=== PATIENT | male | born 1975 | race Caucasian/White ===

== ENCOUNTER 2018-05-23 11:25 | Emergency (ER) | payer SELFPAY ==
[2018-05-23 11:33] VITALS: BP 128/89
--- NOTE | 2018-05-23 12:44 | ER Document Report ---
HPI - HPI Patient complains to provider of: back pain Onset: This morning - 09 05 2 days ago Pain Level: 5 Context: 42-year-old male fell backwards into a back bend hitting his lower thoracic spine and right side middle back on the truck bed. No abdominal pain or chest pain. No shortness of breath. He has to stand due to the pain. There is no radiculopathy. Associated Symptoms: None Exacerbated by: Sitting Relieved by: Denies Similar symptoms previously: No Recently seen / treated by doctor: No Past Medical History - General Information source: Patient - Social History Smoking Status: Never Smoker Frequency of alcohol use: None Drug Abuse: None Lives with: Family Family History: Reviewed & Not Pertinent Patient has suicidal ideation: No Patient has homicidal ideation: No - Medical History Medical History: Negative Renal/ Medical History: Denies: Hx Peritoneal Dialysis Surgical Hx: Negative Vertical Provider Document - CONSTITUTIONAL Agree With Documented VS: Yes Exam Limitations: No Limitations - HEENT HEENT: Normocephalic - NECK Neck: Supple - RESPIRATORY Respiratory: Breath Sounds Normal, No Respiratory Distress - CARDIOVASCULAR Cardiovascular: Regular Rate, Regular Rhythm - BACK Back: Normal Inspection Notes: tender lower t spine and lateral right mid back, no abrasions or bruising - MUSCULOSKELETAL/EXTREMETIES Musculoskeletal/Extremeties: Tender - see above - NEURO Level of Consciousness: Alert Course - Re-evaluation Re-evalutation: 05/23/18 12:47 Patient does not want anything for pain at this time. He is really uncomfortable and cannot sit due to the pain. He wants to have pain pill prescription that he could go back to the hotel and take because he drove himself here. 05/23/18 13:30 compression tx seen on xray, CT ordered, the ribs and chest are negative per rad. 05/23/18 14:53 CT shows endplate compression fracture T10 and T11, no sharp edges. vacuum disc changes T9-10 and T10-11,. Calling Dr. Alexy Resendez to see if Kyphoplasty is option. 05/23/18 15:00 - Vital Signs Vital signs: Temp Pulse Resp BP Pulse Ox 97.7 F 66 16 128/89 H 98 05/23/18 11:31 05/23/18 11:31 05/23/18 11:31 05/23/18 11:31 05/23/18 11:31 Discharge - Discharge Clinical Impression: endplate compression fx T10 and T11 Condition: Good Disposition: HOME, SELF-CARE Instructions: Compression Fracture of the Spine ([facility]), Contusion ([facility]), Ice Packs ([facility]), Warm Packs ([facility]) Additional Instructions: warm compress pain medication 1 every 4 hours as needed Pain medication may constipate used to make sure you take a stool softener motrin 800mg three times per day for inflammation Referral to [facility] who may be able to do a procedure to decrease the pain you have in your compression fracture Prescriptions: Hydrocodone Bit/Acetaminophen [Hydrocodon-Acetaminophen 5-325] 1 - 2 each PO Q4HP PRN #15 tablet PRN Reason: Ibuprofen [Motrin 800 mg Tablet] 800 mg PO Q8HP PRN #30 tablet PRN Reason: Cyclobenzaprine HCl [Flexeril 10 Mg Tablet] 10 mg PO TIDP PRN #20 tablet PRN Reason: Forms: Return to Work Referrals: ALXEY RESENDEZ MD [ACTIVE STAFF] - Follow up tomorrow (call for appointment)
--- NOTE | 2018-05-23 13:32 | RADIOLOGY REPORT (SQ) ---
EXAM DESCRIPTION: T SPINE AP/LAT COMPLETED DATE/TIME: 05/23/2018 1:10 pm REASON FOR STUDY: fell on truck be, lower t spine COMPARISON: None. NUMBER OF VIEWS: Two views. TECHNIQUE: AP and lateral radiographic images acquired of the thoracic spine. LIMITATIONS: None. FINDINGS: MINERALIZATION: Normal. ALIGNMENT: Mild sigmoid scoliosis. VERTEBRAE: Mild compression T11 and T12 superior endplates. No retropulsion. DISCS: Mild degenerative changes. HARDWARE: None in the spine. MEDIASTINUM AND SOFT TISSUES: Normal heart size and aortic contour. No soft tissue abnormality. VISUALIZED LUNG OLIVAS: Clear. OTHER: No other significant finding. IMPRESSION: Compression fractures of T11 and T12 of uncertain chronicity. No retropulsion. TECHNICAL DOCUMENTATION: JOB ID: [id number] [employer]- All Rights Reserved Reading location - IP/workstation name: [email or web address]
--- NOTE | 2018-05-23 13:33 | RADIOLOGY REPORT (SQ) ---
EXAM DESCRIPTION: RIBS RIGHT W/PA CHEST COMPLETED DATE/TIME: 05/23/2018 1:10 pm REASON FOR STUDY: fell on truck be, lower t spine COMPARISON: None. TECHNIQUE: Frontal view of the chest and additional views of the right ribs acquired. NUMBER OF VIEWS: Five views LIMITATIONS: None. FINDINGS: FRONTAL CXR: No pneumothorax. No pleural effusion. No atelectasis or infiltrates. RIBS: No displaced rib fractures. No lytic or blastic bony lesions. OTHER: No other significant finding. IMPRESSION: NO PNEUMOTHORAX. NO DISPLACED RIB FRACTURES. COMMENT: SITE OF TRAUMA/COMPLAINT MARKED/STAMP COMPLETED: YES. TECHNICAL DOCUMENTATION: JOB ID: [id number] [employer]- All Rights Reserved Reading location - IP/workstation name: [email or web address]
--- NOTE | 2018-05-23 14:42 | RADIOLOGY REPORT (SQ) ---
EXAM DESCRIPTION: CT THORACIC SPINE WITHOUT COMPLETED DATE/TIME: 05/23/2018 2:20 pm REASON FOR STUDY: back pain, fx T11-12 on xray COMPARISON: None. TECHNIQUE: Axial images acquired through the thoracic spine without intravenous contrast. Images re viewed with lung, soft tissue and bone windows. Reconstructed coronal and sagittal MPR images review ed. Images stored on PACS. All CT scanners at this facility use dose modulation, iterative reconstruction, and/or weight based d osing when appropriate to reduce radiation dose to as low as reasonably achievable (ALARA). [facility]: Dose Right [facility]: CareDose [facility]: Dose Right [facility]: Teradose 4D [facility]: [employer] RADIATION DOSE: CT Rad equipment meets quality standard of care and radiation dose reduction techniq ues were employed. CTDIvol: 23.8 mGy. DLP: 927 mGy-cm. mGy. LIMITATIONS: Radiographs 05/23/2018 FINDINGS: VISUALIZED LUNGS: No acute opacities. No pneumothorax. SOFT TISSUES: There does not appear to be significant paravertebral soft tissue swelling. VERTEBRAL BODIES: Minimal superior endplate compression T10 and T11. No sharp edges are seen. DISCS: Vacuum disc phenomenon at T9-10 and T10-11. ALIGNMENT: Normal. TRANSVERSE PROCESSES, POSTERIOR ELEMENTS: No fractures. No dislocation. No acute findings. HARDWARE: None in the spine. VISUALIZED RIBS: No fractures. OTHER: No other significant finding. IMPRESSION: Minimal superior endplate compression changes at T10 and T11. While no sharp edges can be seen, given the history, and given the vacuum disc changes, these findings may be acute. Correlat e clinically. MR would show edema if this is acute. TECHNICAL DOCUMENTATION: JOB ID: [id number] Quality ID # [id number]: Final reports with documentation of one or more dose reduction techniques (e.g., Au tomated exposure control, adjustment of the mA and/or kV according to patient size, use of iterative reconstruction technique) 2010 [employer]- All Rights Reserved Reading location - IP/workstation name: [email or web address]
[2018-05-23] MEDS ORDERED: HYDROCODONE/ACETAMINOPHEN 10-325 MG TABLET PO ONE (15:11)
[2018-05-23] MEDS ORDERED: CYCLOBENZAPRINE HCL 10 MG TABLET PO ONE (15:12)
== END 2018-05-23 15:42 | disposition home or self-care (01) ==
LOC: ER 11:25
DX: S22.079A Unspecified fracture of T9-T10 vertebra, initial encounter for closed fracture (principal); S22.089A Unspecified fracture of T11-T12 vertebra, initial encounter for closed fracture; M54.6 Pain in thoracic spine; M54.9 Dorsalgia, unspecified; W19.XXXA Unspecified fall, initial encounter
CPT/HCPCS: 72070; 72128; 99284

== ENCOUNTER 2018-05-27 11:03 | Emergency (ER) | payer SELFPAY ==
[2018-05-27 11:26] VITALS: BP 130/93
--- NOTE | 2018-05-27 11:49 | ER Document Report ---
ED Medical Screen (RME) - General Chief Complaint: Back Pain Stated Complaint: MED REFILL Time Seen by Provider: 05/27/18 11:37 Mode of Arrival: Ambulatory Information source: Patient - 42 yo withott any significant past medical history that presents for evaluation of back pain which began after he slipped and hit his back approximately 5 days prior, he was evaluated at that time underwent imaging which did not demonstrate any have pain medication thereafter , he notes that he is run out of the Flexeril which she was taking for his back pain which did seem to improve his symptoms. He is continued to take ibuprofen which is also help with his symptoms. He denies any fevers or chills, shortness of breath, abdominal pain, diarrhea constipation or dysuria. He has not any rashes, has been unable to see his primary physician as he is currently out of town helping with her cane relief efforts. TRAVEL OUTSIDE OF THE [place] IN LAST 30 DAYS: No - HPI Patient complains to provider of: back pain Onset: Other - Related Data Allergies/Adverse Reactions: No Known Allergies Allergy (Verified 05/27/18 11:37) Past Medical History - General Information source: Patient - Social History Chew tobacco use (# tins/day): No Frequency of alcohol use: Rare Drug Abuse: None Renal/ Medical History: Denies: Hx Peritoneal Dialysis Review of Systems - Review of Systems -: Yes All other systems reviewed and negative Physical Exam - Vital signs Vitals: Temp Pulse Resp BP Pulse Ox 97.8 F 77 16 130/93 H 99 05/27/18 11:24 05/27/18 11:24 05/27/18 11:24 05/27/18 11:24 05/27/18 11:24 - General General appearance: Appears well In distress: None - HEENT Head: Normocephalic Eyes: Normal Conjunctiva: Normal Cornea: Normal Extraocular movements intact: Yes Eyelashes: Normal Pupils: PERRL - Respiratory Respiratory status: No respiratory distress Chest status: Nontender Breath sounds: Normal Chest palpation: Normal - Cardiovascular Rhythm: Regular Heart sounds: Normal auscultation Murmur: No - Abdominal Inspection: Normal Distension: No distension Tenderness: Nontender - Back Back: Tender - Tenderness through the paraspinal muscles in the thoracic spine, most prominent on the right side - Extremities General upper extremity: Normal inspection, Nontender, Normal ROM, Normal strength General lower extremity: Normal inspection, Nontender, Normal ROM, Normal strength, Normal weight bearing - Neurological Neuro grossly intact: Yes Cognition: Normal Orientation: AAOx4 [place] Coma Scale Eye Opening: Spontaneous [place] Coma Scale Verbal: Oriented [place] Coma Scale Motor: Obeys Commands [place] Coma Scale Total: 15 Speech: Normal Cranial nerves: Normal Motor strength normal: LUE, RUE, LLE, RLE - Psychological Associated symptoms: Normal affect Course - Re-evaluation Re-evalutation: 05/27/18 12:24 42-year-old man who presents for pain in the paraspinal muscles in his back after an event in which he hit his back on his truck. Currently out of town was receiving Flexeril as well as Vicodin per previous provider and ibuprofen. We will plan for this patient to undergo discharge with encouraged follow-up in a short prescription for Flexeril. We will also give him Voltaren gel to apply to the area. We will plan for the patient to be discharged with return precautions, he is in agreement with this plan at this time does not believe there is any indication for further imaging, he has no neurologic sequelae no fevers chills or cough to suggest some other more serious pulmonary problem related to his back injury. He was ambulatory without assistance. - Vital Signs Vital signs: Temp Pulse Resp BP Pulse Ox 97.8 F 77 16 130/93 H 99 05/27/18 11:24 05/27/18 11:24 05/27/18 11:24 05/27/18 11:24 05/27/18 11:24 Doctor's Discharge - Discharge Clinical Impression: Muscle spasm Back pain Qualifiers: Back pain location: thoracic back pain Chronicity: acute Back pain laterality: right Qualified Code(s): M54.6 - Pain in thoracic spine Condition: Good Disposition: HOME, SELF-CARE Instructions: Low Back Pain ([facility]), Muscle Strain ([facility]), Warm Packs ([facility]) Prescriptions: Cyclobenzaprine HCl [Flexeril 10 mg Tablet] 10 mg PO TIDP PRN #15 tab PRN Reason: Diclofenac Sodium [Voltaren] 100 gm TP BID #1 gel..gm. Forms: Elevated Blood Pressure
== END 2018-05-27 12:00 | disposition home or self-care (01) ==
LOC: ER 11:03
DX: M54.6 Pain in thoracic spine (principal); M62.838 Other muscle spasm; M54.9 Dorsalgia, unspecified; W01.10XA Fall on same level from slipping, tripping and stumbling with subsequent striking against unspecified object, initial encounter; Z79.899 Other long term (current) drug therapy
CPT/HCPCS: 99281